=== PATIENT | female | born 1950 | race Two or more races ===

== ENCOUNTER 2020-10-02 14:23 | Emergency (ER) | payer MEDICARE, MEDICAID ==
[~2020-10-02] VITALS: Ht 165.1 cm; Wt 61.8 kg
[2020-10-02 15:19] LABS: BASOPHILS % (AUTO) 1 % (0-1); EOSINOPHILS % (AUTO) 1 % (1-7); LYMPHOCYTES % (AUTO) 22 % (22-44); MEAN CORPUSCULAR HEMOGLOBIN 30.8 pg (27.0-34.8); MEAN CORPUSCULAR HGB CONC 33.2 g/dL (32.4-35.8); MONOCYTES % (AUTO) 8 % (2-9); NEUTROPHILS % (AUTO) 69 % (42-75); PLATELET COUNT 126 x10^3/uL (130-400); RED BLOOD COUNT 4.62 x10^6/uL (3.82-5.3); RED CELL DISTRIBUTION WIDTH 13.1 % (9.6-15.2)
[2020-10-02 15:24] LABS: ALANINE AMINOTRANSFERASE 17 U/L (12-78); ALBUMIN 3.6 g/dL (3.4-5.0); ANION GAP 14 mmol/L (5-15); CALCIUM 8.5 mg/dL (8.5-10.1); CHLORIDE 100 mmol/L (98-107); CREATININE 0.87 mg/dL (0.55-1.02)
[2020-10-02 15:27] LABS: ALKALINE PHOSPHATASE 64 U/L (45-117); BILIRUBIN,TOTAL 0.4 mg/dL (0.2-1.0)
[2020-10-02 15:57] LABS: MD SCAN
--- NOTE | 2020-10-02 16:28 | NUR ---
CONTACT WITH PT, 70 YR OLD FEMALE HERE WITH C/O "MY STOMACH IS LIKE IT IS HUNGRY." LAST ATE AT 0800. WAS SEEN AT [facility] AT 1000, TOLD TO COME IN TO EMERGENCY. "I FEEL SICK AND HUNGRY"
--- NOTE | 2020-10-02 16:33 | NUR ---
"BODY ACHES AND STOMACH PAINS SINCE WEDNESDAY. GOT WORSE ON WEDNESDAY." DENIES DIARRHEA OR CONSTIPATION. HAS NAUSEA. DENIES ABD SURGERY
--- NOTE | 2020-10-02 16:36 | NUR ---
MOISE TRACY AT BEDSIDE TO EVAL PT
[2020-10-02] MEDS ORDERED: ONDANSETRON 2MG/ML, 2ML ONE (16:45)
[2020-10-02] MEDS ORDERED: POTASSIUM CHLORIDE 20 MEQ TAB.ER.PRT ONE (16:45)
--- NOTE | 2020-10-02 16:53 | NUR ---
PT MEDICATED ORDERED. PT TO CT VIA RUDDY
[2020-10-02] MEDS ORDERED: POTASSIUM CHLORIDE 20 MEQ TAB.ER.PRT PO ONE (17:00)
[2020-10-02] MEDS ORDERED: OMNIPAQUE 350 MG/ML, 100ML BOTTLE ONE (17:15)
--- NOTE | 2020-10-02 17:30 | NUR ---
PT IN ROOM, DECREASED C/O NAUSEA "HUNGRY" PT AWARE OF WAITING FOR TEST RESULTS. NO NEEDS EXPRESSED AT THIS TIME.
[2020-10-02] MEDS ORDERED: ONDANSETRON 2MG/ML, 2ML IVPush ONE (18:00)
[2020-10-02 18:14] VITALS: BP 132/76
--- NOTE | 2020-10-02 18:14 | NUR ---
PT IN NO ACUTE DISTRESS NOTED. IV DC'D WITH CANNULA INTACT. REVIEWED DC INSTRUCTIONS WITH PT. UNDERSTANDING VERBALIZED.
== END 2020-10-02 18:18 | disposition home or self-care (01) ==
LOC: ED 17:15
DX: K29.00 Acute gastritis without bleeding (principal); E87.6 Hypokalemia; M79.10 Myalgia, unspecified site; I10 Essential (primary) hypertension
CPT/HCPCS: 36415; 74177; 80053; 83690; 85025; 96374; 99285; J2405; Q9967